=== PATIENT | male | born 1975 | race African-American/Black ===

== ENCOUNTER 2016-08-08 13:39 | Emergency (ER) | payer MEDICAID ==
[~2016-08-08] VITALS: Ht 172.7 cm; Wt 63.5 kg
[~2016-08-08 13:39] MED LIST: ATIVAN1 MG ORAL; ATIVAN1 MG PO; ATIVAN2 MG ORAL; COUMADIN5 MG ORAL; DILANTIN100 MG PO; DILAUDID2 MG PO; FOLIC ACID1 MG PO; HYDREA500 MG PO; LEXIVA700 MG PO; NORCO 5-325 TA1 EACH PO; NORVIR100 MG PO; PROMETHAZINE-C118 M1 ORAL; TRUVADA1 TAB PO; ZITHROMAX250 MG ORAL; lovenox SQ
[2016-08-08] MEDS ORDERED: HYDROmorphone 1mg/ml Carpuject IM ONE (14:00)
[2016-08-08] MEDS ORDERED: DiphenhydrAMINE 50mg/ml Inj IM ONE (14:00)
[2016-08-08 14:08] VITALS: BP 124/80
[2016-08-08 14:27] VITALS: BP 124/80
--- NOTE | 2016-08-08 15:41 | Emergency Room Report ---
History of Present Illness General Chief Complaint: Pain Source: Patient, Medical Record Present Illness HPI 41-year-old male presents ED for evaluation. Patient is complaining of generalized body pain. Started today. Patient notes history of sickle cell disease. States pain is a 10 out of 10, aching, nonradiating. No aggravating or leading factors. Denies chest pain or shortness of breath. Denies fevers or chills. Denies any other associated symptoms Allergies: Coded Allergies: PENICILLINS (Verified Allergy, Severe, facial swelling, 04/29/12) ASPIRIN (Verified Allergy, Mild, 12/20/13) Facial swelling IBUPROFEN (Verified Allergy, Mild, FACIAL SWELLING, 02/19/12) Patient History Past Medical History: seizures Past Surgical History: none Pertinent Family History: none Social History: Denies: alcohol use, drug use, smoking Immunizations: UTD Reviewed Nursing Documentation: PMH: Agreed, PSxH: Agreed Nursing Documentation-PMH Past Medical History: No History, Except For Hx Hypertension: No Hx Pacemaker: No Hx Asthma: No Hx COPD: No Hx Diabetes: No Hx Cancer: No Hx Gastrointestinal Problems: No Hx Dialysis: No Hx Neurological Problems: No Hx Cerebrovascular Accident: No - TIA Hx Seizures: Yes - Last seizure 10 years ago Review of Systems All Other Systems: negative except mentioned in HPI Physical Exam Vital Signs Date Time Temp Pulse Resp B/P Pulse Ox O2 Delivery O2 Flow Rate FiO2 08/08/16 13:41 97.9 90 20 124/80 99 Room Air Sp02 EP Interpretation: reviewed, normal General Appearance: no apparent distress, alert, GCS 15, non-toxic Head: normocephalic, atraumatic Eyes: bilateral eye PERRL, bilateral eye normal inspection ENT: hearing grossly normal, normal pharynx, no angioedema, normal voice Neck: full range of motion, supple/symm/no masses Respiratory: chest non-tender, lungs clear, normal breath sounds, speaking full sentences Cardiovascular #1: regular rate, rhythm, no edema Cardiovascular #2: 2+ carotid (R), 2+ carotid (L), 2+ radial (R), 2+ radial (L) , 2+ dorsalis pedis (R), 2+ dorsalis pedis (L) Gastrointestinal: normal bowel sounds, non tender, soft, non-distended, no guarding, no rebound Rectal: deferred Genitourinary: normal inspection, no CVA tenderness Musculoskeletal: back normal, gait/station normal, normal range of motion, non- tender Neurologic: alert, oriented x3, responsive, motor strength/tone normal, sensory intact, speech normal Psychiatric: judgement/insight normal, memory normal, mood/affect normal, no suicidal/homicidal ideation Reflexes: 3+ bicep (R), 3+ bicep (L), 3+ tricep (R), 3+ tricep (L), 3+ knee (R) , 3+ knee (L) Skin: normal color, no rash, warm/dry, well hydrated Lymphatic: no adenopathy Medical Decision Making Diagnostic Impression: Primary Impression: Chronic pain Qualified Codes: G89.29 - Other chronic pain Additional Impressions: Sickle cell trait Opioid dependence Qualified Codes: F11.29 - Opioid dependence with unspecified opioid-induced disorder ER Course Hospital Course 41-year-old M presents ED complaining of generalized body pain, h/o sickle cell Differential diagnoses include: FL/unstable angina, sickle cell crisis, sepsis, UTI, pneumonia Clinical course Patient placed on stretcher. on lunchroom monitor. He reports has very poor IV access. Does not want blood drawn or IV access. Patient has been given Dilaudid IM here in the past. I agreed to give him 1 mg of Dilaudid with Benadryl Given Dilaudid IM and Benadryl IM with pain improved Diagnosis - sickle cell trait, chronic pain , opioid dependence Stable and discharged to home. Followup with PMD. Return to ED if symptoms recur or worsen Chest X-Ray Diagnostic Results Chest X-Ray Ordered: No Last Vital Signs Date Time Temp Pulse Resp B/P Pulse Ox O2 Delivery O2 Flow Rate FiO2 08/08/16 14:33 97.9 08/08/16 14:27 90 20 124/80 99 Room Air Status: improved Disposition: HOME, SELF-CARE Condition: Stable Referrals: [facility],REFERRING (PCP) Patient Instructions: Sickle Cell Anemia, Adult, [id number] TIMO BRANTLEY M.D. Aug 08, 2016 15:41
== END 2016-08-08 14:38 | disposition home or self-care (01) ==
LOC: EMR 13:59
DX: G89.29 Other chronic pain (principal); D57.3 Sickle-cell trait; F11.20 Opioid dependence, uncomplicated; Z86.73 Personal history of transient ischemic attack (TIA), and cerebral infarction without residual deficits
CPT/HCPCS: 96372; 99283; J1170; J1200

== ENCOUNTER 2016-08-20 09:48 | Emergency (ER) | payer MEDICAID ==
[~2016-08-20] VITALS: Ht 172.7 cm; Wt 59.9 kg
[2016-08-20 10:31] VITALS: BP 118/79
[2016-08-20] MEDS ORDERED: HYDROmorphone 2mg tab ORAL ONE (11:15)
--- NOTE | 2016-08-20 11:16 | Emergency Room Report ---
History of Present Illness General Chief Complaint: Pain Source: Patient Present Illness HPI 41YOM with known sickle cell c/o pain to right hip for 2 days. Took home Dilaudid 2mg PO at 3am, didnt want to take any more and "run out." Has MD appt next week. Denies chest pain, SOB, fever/chills, abd pain. Specific request made for IM dilaudid with bendaryl because "thats what I usually get here." Allergies: Coded Allergies: PENICILLINS (Verified Allergy, Severe, facial swelling, 04/29/12) ASPIRIN (Verified Allergy, Mild, 12/20/13) Facial swelling IBUPROFEN (Verified Allergy, Mild, FACIAL SWELLING, 02/19/12) Patient History Past Medical History: other - Sickle cell disease Past Surgical History: none Pertinent Family History: none Social History: Denies: alcohol use, drug use, smoking Immunizations: UTD Reviewed Nursing Documentation: PMH: Agreed, PSxH: Agreed Nursing Documentation-PMH Hx Hypertension: No Hx Pacemaker: No Hx Asthma: No Hx COPD: No Hx Diabetes: No Hx Cancer: No Hx Gastrointestinal Problems: No Hx Dialysis: No Hx Neurological Problems: No Hx Cerebrovascular Accident: No - TIA Hx Seizures: Yes - Last seizure 10 years ago Review of Systems All Other Systems: negative except mentioned in HPI Physical Exam Vital Signs Date Time Temp Pulse Resp B/P Pulse Ox O2 Delivery O2 Flow Rate FiO2 08/20/16 09:54 98.1 101 19 110/70 97 Room Air Sp02 EP Interpretation: reviewed, normal General Appearance: normal inspection, well appearing, no apparent distress, alert, GCS 15, non-toxic, other - Well appearing, using iphone in stretcher Head: normocephalic, atraumatic Eyes: bilateral eye EOMI, bilateral eye PERRL ENT: normal ENT inspection, hearing grossly normal, normal voice Neck: normal inspection, full range of motion, supple, no bony tend Respiratory: normal inspection, lungs clear, normal breath sounds, no respiratory distress, no retraction, no wheezing Cardiovascular #1: regular rate, rhythm, no edema Gastrointestinal: normal inspection, normal bowel sounds, non tender, soft, no guarding, no hernia Genitourinary: no CVA tenderness Musculoskeletal: normal inspection, back normal, normal range of motion, Sukhi' s Sign negative, other - No right hip bony ttp Neurologic: normal inspection, alert, oriented x3, responsive, continuous conveyor screen drier III-XII nml as tested, motor strength/tone normal, speech normal Psychiatric: normal inspection, judgement/insight normal, mood/affect normal Skin: normal inspection, normal color, no rash Lymphatic: normal inspection Medical Decision Making Diagnostic Impression: Primary Impression: Chronic pain Qualified Codes: G89.4 - Chronic pain syndrome Additional Impression: Opioid dependence Qualified Codes: F11.29 - Opioid dependence with unspecified opioid-induced disorder ER Course VSS. Afebrile. -?painful crisis from SCD - VSS, no pallor, chest pain, dizziness, SOB that would warrant lab testing for anemia - Low suspicion for acute chest syndrome given no chest pain, SOB, fever/chills - Specific request for IM dialudid - Offered to give his usual PO dose only - Has PMD followup next week Last Vital Signs Date Time Temp Pulse Resp B/P Pulse Ox O2 Delivery O2 Flow Rate FiO2 08/20/16 10:31 84 16 118/79 99 Room Air 08/20/16 09:54 98.1 Status: improved Disposition: HOME, SELF-CARE Condition: Improved Referrals: NON PHYSICIAN (PCP) Patient Instructions: Sickle Cell Anemia, Adult, [id number] TASNEEM MEDINA M.D. Aug 20, 2016 11:16
[2016-08-20 11:28] VITALS: BP 121/77
== END 2016-08-20 11:30 | disposition home or self-care (01) ==
LOC: EMR 10:46
DX: G89.29 Other chronic pain (principal); M25.551 Pain in right hip; Z88.6 Allergy status to analgesic agent; Z88.0 Allergy status to penicillin; D57.1 Sickle-cell disease without crisis; Z86.73 Personal history of transient ischemic attack (TIA), and cerebral infarction without residual deficits; F11.20 Opioid dependence, uncomplicated
CPT/HCPCS: 99282